=== PATIENT | female | born 1935 | race Caucasian/White ===

== ENCOUNTER 2019-10-17 16:44 | Inpatient (IN) | payer OTHER ==
[~2019-10-17] VITALS: Ht 154.9 cm; Wt 75.3 kg
[2019-10-17 16:44] VITALS: BP 90/56
--- NOTE | 2019-10-17 16:44 | NUR ---
Patient BIBA ALS, transferred to bed 1. RN evaluating patient at bedside.
--- NOTE | 2019-10-17 16:44 | NUR ---
83 Y/O F BIBA FROM DIALYSIS CENTER. PER EMS PT INTO 30 MINUTES OF DIALYSIS WHEN CALLED IN DUE TO A-FIB RVR AND HYPOTENSION. PER EMS PATIENT IN RESPIRATORY DISTRESS AND ON NRB 15LPM. PT PRESENTS WITH PIC LINE ON RUE; DIALYSIS CATHETER ON RIGHT UPPER CHEST. PT ALTERED, LABORED BREATHING, BKA RLE. SIDE RAIL X2. PER EMS TAKING FULL COVID19 PRECAUTIONS DUE TO PRESENTING S/S. PT TAKEN TO ROOM 1 AT [facility] LINE ED FOLLOWING COVID19 [facility] PROTOCOL. HX,RX --- SEE CHART
--- NOTE | 2019-10-17 16:50 | NUR ---
Dr. Ray is evaluating the patient at bedside.
--- NOTE | 2019-10-17 16:50 | NUR ---
CALLED CP COMMUNICABLE DIEASE SECTION (CDS) PT DID NOT MEET CRITERIA FOR TESTING COVID-19
[2019-10-17] MEDS ORDERED: DILTIAZEM 25 MG/5 ML VIAL IVP ONE ×2 (16:53→17:45)
[2019-10-17] MEDS ORDERED: ALBUTEROL SULFATE/IPRATROPIU 3 ML SOL IH ONE ×2 (16:54→17:45)
[2019-10-17] MEDS ORDERED: AMIODARONE 150 MG/3 ML VIAL IV ONE ×2 (17:01→18:49)
[2019-10-17] MEDS ORDERED: ALBUTEROL 0.083% 2.5 MG/3 ML NEBU INH ONE ×2 (17:06→17:45)
[2019-10-17] MEDS ORDERED: LORazepam 2 MG/ML VIAL ONE (17:25)
[2019-10-17] MEDS ORDERED: AMIODARONE 150 MG in DEXTROSE 5% 100 ML IV ONE (17:45)
[2019-10-17] MEDS ORDERED: VANCOMYCIN 1,000 MG in DEXTROSE 5% 250 ML IV ONE (17:50)
[2019-10-17] MEDS ORDERED: NACL 0.9% 1,000 ML IV ONE ×2 (17:50→18:45)
[2019-10-17] MEDS ORDERED: PIPERACILLIN/TAZOBACTAM 3.375 GM in DEXTROSE 5% 50 ML IV ONE (17:50)
[2019-10-17] MEDS ORDERED: INTUBATION KIT MC ONE (18:16)
[2019-10-17] MEDS ORDERED: SUCCINYLCHOLINE CHLORIDE 200 MG/10 ML VIAL IVP ONE (18:20)
[2019-10-17] MEDS ORDERED: ETOMIDATE 20 MG/10 ML VIAL IVP ONE (18:20)
[2019-10-17 18:26] LABS: BASOPHILS # (AUTO) 0.1 K/uL (0.00-0.22); BASOPHILS % (AUTO) 0.9 % (0.0-2.0); EOSINOPHILS # (AUTO) 0.1 K/uL (0-0.4); EOSINOPHILS % (AUTO) 0.8 % (0.0-4.0); HEMATOCRIT 30.5 % (36-48); HEMOGLOBIN 9.9 g/dL (12.0-16.0); LYMPHOCYTES # (AUTO) 1.1 K/uL (2.5-16.5); LYMPHOCYTES % (AUTO) 12.4 % (20.5-51.1); MEAN CORPUSCULAR HEMOGLOBIN 33 pg (27-31); MEAN CORPUSCULAR HGB CONC 33 g/dL (33-37); MEAN CORPUSCULAR VOLUME 100.2 fL (80-94); MONOCYTES # (AUTO) 0.4 K/uL (0.8-1.0); MONOCYTES % (AUTO) 4.5 % (1.7-9.3); NEUTROPHILS # (AUTO) 7.4 K/uL (1.8-7.7); NEUTROPHILS % (AUTO) 81.4 % (42.2-75.2); PLATELET COUNT (AUTO) 172 K/uL (140-450); RED BLOOD CELL COUNT(AUTO) 3.04 MIL/uL (4.20-5.40); RED CELL DISTRIBUTION WIDTH 18.5 % (11.6-13.7); WHITE BLOOD COUNT (AUTO) 9.1 K/uL (4.8-10.8)
--- NOTE | 2019-10-17 18:27 | NUR ---
2MG ATIVAN PULLED FROM OMNICELL AND 1MG GIVEN TO PT PER DR MEDRANO VERBAL ORDER
--- NOTE | 2019-10-17 18:27 | NUR ---
UNABLE TO DOCUMENT ON EMAR. MEDICATION NOT APPEARING.
[2019-10-17 18:28] LABS: ANION GAP 17.9 (8-16); CARBON DIOXIDE 28.2 mmol/L (21-32); CHLORIDE 102 mmol/L (98-107); GLUCOSE 142 mg/dL (74-106); POTASSIUM 3.1 mmol/L (3.5-5.1); SODIUM SERUM 145 mmol/L (136-145); UREA NITROGEN, BLOOD 69 mg/dL (7-18)
[2019-10-17 18:29] LABS: ALBUMIN 2.2 g/dL (3.4-5.0); ASPARTATE AMINOTRANSFERASE 37 U/L (15-37); CREATININE 3.4 mg/dL (0.6-1.3); TOTAL BILIRUBIN 1.6 mg/dL (0.0-1.0)
--- NOTE | 2019-10-17 18:29 | NUR ---
Dr. Ray, RN, and RTs at pt bedside for pt intubation
[2019-10-17] MEDS ORDERED: ACETAMINOPHEN 650 MG SUPP RC ONE (18:45)
[2019-10-17] MEDS ORDERED: KCL 20 MEQ/WATER INJ PREMIX 100 ML IV ONE (18:50)
[2019-10-17] MEDS ORDERED: VANCOMYCIN 1,000 MG VIAL ONE (18:52)
[2019-10-17] MEDS ORDERED: PIPERACILLIN/TAZOBACTAM 3.375 GM VIAL IV ONE (18:53)
[2019-10-17] MEDS ORDERED: ACETAMINOPHEN 325 MG TAB PO PRN (19:00)
[2019-10-17] MEDS ORDERED: VASOPRESSIN 20 UNITS in NACL 0.9% 250 ML IV SCH (19:00)
[2019-10-17] MEDS ORDERED: VANCOMYCIN PER PHARMACY MC PRN (19:00)
[2019-10-17] MEDS ORDERED: ONDANSETRON 4 MG/2 ML VIAL IVP PRN (19:00)
--- NOTE | 2019-10-17 19:30 | NUR ---
ALL CARE PROVIDED TO PATIENT, PER ERMD TO CONTINUE WITH COVID19 PRECAUTIONS. RN AT BEDSIDE WITH FULL PPE AT ALL TIMES.
[2019-10-17] MEDS ORDERED: NOREPINEPHRINE 16 MG in DEXTROSE 5% 234 ML IV PRN (19:35)
[2019-10-17 20:02] LABS: MAGNESIUM 1.8 mg/dL (1.8-2.4); PHOSPHORUS 2.5 mg/dL (2.5-4.9); THYROID STIMULATING HORMONE 4.36 uIU/mL (0.34-3.74)
[2019-10-17 20:15] VITALS: BP 136/55
--- NOTE | 2019-10-17 20:15 | NUR ---
Patient will be admitted to care of [facility]. Admited to ICU. Will go to room 6. Belongings list completed. Report to ONEAL CHAVARRIA. COVID19 PRECAUTIONS AT ALL TIMES.
--- NOTE | 2019-10-17 20:15 | NUR ---
RECEIVED REPORT FROM ER NURSE. PT. AFEBRILE. PT INTUBATED 7.0 @ 21 AC16/450/100%/+5. EVEN UNLABORED BREATHING. ON DROPLET PRECAUTION FOR INFLUENZA. NGT IN PLACE. PT ON HD. ACCESS RUC. ST ON MONITOR. IV SITE SREEDHAR PICC. DRESSING DRY, INTACT. R BKA NOTED. L TOE AMP NOTED. BED IN LOWEST POSITION. CALL LIGHT WITHIN REACH. WILL CONTINUE TO MONITOR.
[2019-10-17] MEDS ORDERED: ALBUTEROL SULFATE/IPRATROPIU 3 ML SOL IH PRN (20:50)
[2019-10-17] MEDS ORDERED: LORazepam 2 MG/ML VIAL IM/IVP ONE ×2 (21:10→22:00)
[2019-10-17 21:29] VITALS: BP 103/52
[2019-10-17] MEDS ORDERED: OSELTAMIVIR PHOSPHATE 30 MG CAP PO ONE (21:35)
[2019-10-17] MEDS ORDERED: DEXTROSE 50% 50 ML SYR IVP PRN (21:35)
--- NOTE | 2019-10-17 21:40 | NUR ---
PT INTUBATED WITH A 7.0 ETT SECURED @22 TEETH/GUMS. VENT SETTINGS AC/VC 16, VT 450, PEEP 5 AND FIO2 45% DECREASED DUE TO ABG RESULTS. VENT ALARMS ON AND FUNCTIONING. PT NOT IN ANY DISTRESS AT THIS TIME.
[2019-10-17 22:00] VITALS: BP 113/65
--- NOTE | 2019-10-17 22:00 | NUR ---
FAMILY AND DR. MCKEON AT BEDSIDE AT THIS TIME. UPDATED ON PTS CURRENT CONDITION.
[2019-10-17] MEDS: NACL 0.9% 1,000 ML IV SCH (22:33)
[2019-10-17] MEDS: DOCUSATE SODIUM 100 MG GELCAP PO SCH (22:36)
[2019-10-17] MEDS ORDERED: CRUSHER, PILL MC ONE (22:41)
[2019-10-17 23:04] VITALS: BP 113/65
[2019-10-17] MEDS ORDERED: MIDAZOLAM MDV 50 MG/10 ML VIAL IV ONE (23:20)
[2019-10-17] MEDS ORDERED: fentaNYL 0.05 MG/ML VIAL ONE (23:21)
[2019-10-18] VITALS (38 sets, daily range): BP systolic 83–124; BP diastolic 41–74
--- NOTE | 2019-10-18 | NUR ---
AFEBRILE. NO SIGNS OF ACUTE DISTRESS AT THIS TIME
[2019-10-18] MEDS ORDERED: METO25TA NG (00:13)
[2019-10-18] MEDS ORDERED: NA P135N RC (00:13)
[2019-10-18] MEDS ORDERED: BISA-213 RC ×2 (00:13→01:26)
[2019-10-18] MEDS ORDERED: ACET-2619 PO (00:13)
[2019-10-18] MEDS ORDERED: AMIO200T5 NG (00:13)
[2019-10-18] MEDS ORDERED: METF1TAB34 NG (00:13)
[2019-10-18] MEDS ORDERED: MEX2.5 NG ×2 (00:13→01:26)
[2019-10-18] MEDS ORDERED: OMEP20TC12 NG (00:13)
[2019-10-18] MEDS ORDERED: GABA100C NG (00:13)
[2019-10-18] MEDS ORDERED: ASPI-1822 NG (00:13)
[2019-10-18] MEDS ORDERED: VITA1TAB44 NG (00:13)
[2019-10-18] MEDS ORDERED: CLOP75TA55 NG (00:13)
[2019-10-18] MEDS ORDERED: CEFE1SOL IV (00:13)
[2019-10-18] MEDS ORDERED: MULT-1469 NG (00:47)
[2019-10-18] MEDS ORDERED: PRED1TAB2 NG (00:47)
[2019-10-18] MEDS ORDERED: SPIR25TA20 NG (00:47)
[2019-10-18] MEDS ORDERED: SUCR1TAB35 NG (00:47)
[2019-10-18] MEDS ORDERED: TRAM50TA1 NG (00:47)
[2019-10-18] MEDS ORDERED: VENL150C1 NGT (00:47)
[2019-10-18] MEDS ORDERED: TOPI25CA6 NG ×2 (00:47→01:26)
[2019-10-18] MEDS ORDERED: SIMV20TA1 NG (00:47)
[2019-10-18] MEDS ORDERED: TOPI25TA41 NG (00:47)
[2019-10-18] MEDS ORDERED: PILO5TAB NG (00:47)
[2019-10-18] MEDS ORDERED: traMADol 50 MG TAB NG SCH (01:30)
[2019-10-18] MEDS ORDERED: SODIUM PHOSPHATE 118 ML ENEM RC PRN (01:30)
--- NOTE | 2019-10-18 02:30 | NUR ---
PT TAKEN OFF UNIT FOR CT OF CHEST AT THIS TIME.
[2019-10-18] MEDS ORDERED: RISE35TA PO (02:32)
--- NOTE | 2019-10-18 03:00 | NUR ---
PT BITING ETT AND BECOMING RESTLESS. STARTED ON VERSED AND FENT GTT.
[2019-10-18] MEDS: fentaNYL 1 MG in NACL 0.9% 80 ML IV PRN ×2 (03:07→22:00)
[2019-10-18] MEDS: MIDAZOLAM MDV 50 MG in NACL 0.9% 40 ML IV PRN ×2 (03:10→22:00)
[2019-10-18] MEDS ORDERED: PIPERACILLIN/TAZOBACTAM 2.25 GM VIAL IV ONE (04:20)
[2019-10-18] MEDS: PIPERACILLIN/TAZOBACTAM 2.25 GM in DEXTROSE 5% 50 ML IV SCH ×3 (04:59→20:14)
--- NOTE | 2019-10-18 05:37 | NUR ---
NO SIGNS OFF ACUTE DISTRESS AT THIS TIME. RASS -3 FENTANYL AND VERSED GTT TURNED OFF AT THIS TIME.
--- NOTE | 2019-10-18 05:44 | NUR ---
PT REMAINS ON DOCUMENTED VENT SETTINGS NOT IN ANY DISTRESS. FIO2 TITRATED TO 40%. VENT ALARMS REMAIN ON AND FUNCTIONING. ETT IS SECURE WITH A PATENT AIRWAY.
[2019-10-18] MEDS ORDERED: ALBUTEROL SULFATE/IPRATROPIU 3 ML SOL IH SCH (06:00)
[2019-10-18 06:14] LABS: BASOPHILS # (AUTO) 0.1 K/uL (0.00-0.22); BASOPHILS % (AUTO) 1.1 % (0.0-2.0); EOSINOPHILS # (AUTO) 0.1 K/uL (0-0.4); EOSINOPHILS % (AUTO) 0.7 % (0.0-4.0); HEMATOCRIT 25.6 % (36-48); HEMOGLOBIN 8.4 g/dL (12.0-16.0); LYMPHOCYTES # (AUTO) 1.1 K/uL (2.5-16.5); LYMPHOCYTES % (AUTO) 13.1 % (20.5-51.1); MEAN CORPUSCULAR HEMOGLOBIN 33 pg (27-31); MEAN CORPUSCULAR HGB CONC 33 g/dL (33-37); MEAN CORPUSCULAR VOLUME 100.6 fL (80-94); MONOCYTES # (AUTO) 0.5 K/uL (0.8-1.0); MONOCYTES % (AUTO) 5.8 % (1.7-9.3); NEUTROPHILS # (AUTO) 6.9 K/uL (1.8-7.7); NEUTROPHILS % (AUTO) 79.3 % (42.2-75.2); PLATELET COUNT (AUTO) 133 K/uL (140-450); RED BLOOD CELL COUNT(AUTO) 2.55 MIL/uL (4.20-5.40); RED CELL DISTRIBUTION WIDTH 18.3 % (11.6-13.7)
[2019-10-18 06:30] LABS: MAGNESIUM 1.6 mg/dL (1.8-2.4); PHOSPHORUS 4.4 mg/dL (2.5-4.9)
[2019-10-18 06:36] LABS: ANION GAP 17.8 (8-16); CARBON DIOXIDE 22.7 mmol/L (21-32); CHLORIDE 106 mmol/L (98-107); CREATININE 3.7 mg/dL (0.6-1.3); GLUCOSE 121 mg/dL (74-106); POTASSIUM 3.5 mmol/L (3.5-5.1); SODIUM SERUM 143 mmol/L (136-145)
[2019-10-18] MEDS: BLOOD GLUCOSE MONITORING 1 DEV DEV FS SCH ×4 (06:45→20:48)
--- NOTE | 2019-10-18 06:50 | NUR ---
DR. BETHEA AT BEDSIDE AT THIS TIME. UPDATED ON PTS CURRENT CONDITION. WILL CONTINUE TO FOLLOW UP ADDITIONAL ORDERS.
[2019-10-18 06:51] LABS: UREA NITROGEN, BLOOD 76 mg/dL (7-18)
[2019-10-18 06:55] LABS: CHOL/HDL RATIO 4.7 (1-4.5)
[2019-10-18 07:01] LABS: WHITE BLOOD COUNT (AUTO) 8.7 K/uL (4.8-10.8)
--- NOTE | 2019-10-18 07:26 | NUR ---
ENDORSED CARE TO INCOMING SHIFT RN THIAGO FOR CONTINUITY OF CARE.
--- NOTE | 2019-10-18 07:30 | NUR ---
RECEIVED PT FROM PM SHIT RN. PT DOES NOT OPEN EYES, UNRESPONSIVE TO VERBAL STIMULI, WITHDRAW TO PAIN, BEDSIDE MONITOR SHOWS HR 120S. SBP 90S. PT ETT TO VENT WITH SETTING FIO2=40%, TA=855, AC=16 PEEP =5. NO S/S OF RESPIRATORY DISTRESS NOTED. PT HAS NG TUBE TO RIGHT NARES. PT ALSO HAS PICC LINE TO LEFT UPPER ARM RUNNING 0.9 NS AT 25 CC/HR. IV TO LEFT THUMB # 20, SALINE LOCKED. PT ALSO HAS HD PORT TO RIGHT UPPER CHEST. RIGHT BKA NOTED. LEFT FOOT ON HEEL PROTECTION. WILL CONTINUE TO MONITOR PT.
[2019-10-18] MEDS: ALBUTEROL SULFATE/IPRATROPIU 3 ML SOL IH SCH ×2 (07:52→19:42)
--- NOTE | 2019-10-18 07:52 | NUR ---
RECEIVED ON A LelaSCAPE R860 VENTILATOR PLUGGED INTO RED OUTLET TOLERATING WELL WITHOUT ADVERSE REACTIONS NOTED TO AN ENDOTRACHEAL TUBE #7.0 SECURE AT 22cm TEETH/GUM LINE WITH AN ANCHOR FAST CUFF PRESSURE CHECKED NOTED AMBU BAG NOTED AT BEDSIDE EQUAL CHEST RISE BREATH SOUNDS CLEAR BILATERAL GOOD AERATION THROUGHOUT BILATERAL LUNG GALAN AIRWAY PATENT
--- NOTE | 2019-10-18 08:24 | NUR ---
PATIENT HAS BEEN SCREENED AND CATEGORIZED HIGH NUTRITION RISK. PATIENT WILL BE SEEN WITHIN 1-2 DAYS OF ADMISSION. 10/18/19-10/19/[address]
[2019-10-18] MEDS ORDERED: ASPIRIN 81 MG TAB.CHEW NG SCH (09:00)
[2019-10-18] MEDS ORDERED: VIT-B COMP/VIT-C/FOLIC ACID 1 TAB NG SCH (09:00)
[2019-10-18] MEDS ORDERED: predniSONE 1 MG TAB NG SCH (09:00)
[2019-10-18] MEDS: PANTOPRAZOLE 40 MG INJ VIAL IVP SCH (09:12)
[2019-10-18] MEDS: DOCUSATE SODIUM 100 MG GELCAP PO SCH ×2 (09:12→20:43)
[2019-10-18] MEDS: VIT-B COMP/VIT-C/FOLIC ACID 1 TAB NG SCH (09:13)
[2019-10-18] MEDS: VENLAFAXINE XR 75 MG CAPER PO SCH (09:13)
[2019-10-18] MEDS: BISACODYL 10 MG SUPP RC SCH (09:13)
[2019-10-18] MEDS: CLOPIDOGREL 75 MG TAB NG SCH (09:13)
[2019-10-18] MEDS: TOPIRAMATE 25 MG TAB NG SCH (09:14)
[2019-10-18] MEDS: AMIODARONE 200 MG TAB NG SCH ×2 (09:14→20:14)
[2019-10-18] MEDS: SUCRALFATE 1 GM TAB NG SCH ×4 (09:14→20:13)
[2019-10-18] MEDS ORDERED: predniSONE 5 MG TAB PO SCH (09:15)
[2019-10-18] MEDS: SPIRONOLACTONE 25 MG TAB NG SCH (09:27)
[2019-10-18] MEDS: GABAPENTIN 100 MG CAP NG SCH ×4 (09:27→20:13)
--- NOTE | 2019-10-18 10:13 | NUR ---
CALLED PT'Rajinder GALVAN, NO ANSWER. VOICE MESSAGE LEFT.
--- NOTE | 2019-10-18 10:27 | NUR ---
NO EVIDENCE OF RESPIRATORY DISTRESS NOTED GOOD CHEST RISE ENDOTRACHEAL SUCTION FOR LARGE THICK YELLOW SECRETINS AIRWAY PATENT SATURATION 99% ON FIO2 OF 40% TITRATED FIO2 TO 35% SUPERVISOR ROVING DEPARTMENT TO NOTIFY DAY/RN
--- NOTE | 2019-10-18 11:17 | NUR ---
DR. Kevin UGARTE AT BEDSIDE MD INCREASED RATE TO 20 BPM FOR MECHANICAL SUPPORT ABG AFTER 30 MIN PLEASE CALL MD WITH RESULTS
--- NOTE | 2019-10-18 12:06 | NUR ---
FISCAL ANALYST DISCHARGE PLAN ASSESSMENT [facility] Patient: Mora Benjamin : 1935 Age/Sex: 83/F Unit#: [id number] Room/Bed: [facility]/A User: Megha Francois CM Date: 10/18/19 11:45 Type: CM: Discharge Planning High Risk DC Screen Yes Name: Kim Benjamin Pre-Admission Living Arrangements: SNF Prior ADL Needs Assistance Current Home Health Name/Tel: N/A Current Name/Tel: walker, prostetic leg Current Hospice Name/Tel: N/A Current Dialysis Name/Tel: [facility] [phone] Healthcare Decision Maker: Next of Kin Advance Directive No Physician Orders for Life Sustaining Treatment Form No Patient/Family Have Educational Needs No Tentative Discharge Plan/Destination: SNF/ECF Will require assistance post discharge: Yes - Rehab Referred to Medical Record Specialist: No Tentative Discharge Plan Summary: 83 y/o female pt admitted for respiratory distress. Pt was intubated in the ED. Pt with hx of high BP, DM, ESRD on hemodialysis. Sw spoke to pt's granddaughter, Delfina Hernandez who reported the following: pt was admitted to [facility] on September 23 due to casrdiopulmonary arrest. Pt had kidney failure and was started on dialysis at [place]. Pt was DC on October 12 to [facility] for rehab. Pt was scheduled to received outpatient dialysis at [facility] on Wednesday, , Wednesday at 8am. October 16 was the pt's first outpatient HD treatment at [facility] when she developed SOB. Prior to the patient's arrest, pt lived with family in [place]. Pt has a walker and required assistance with ADLs. Pt doesn't have an advance directive, DPOA or living will. Family appointed Kim Benjamin, daughter, as the main decision maker for the pt since she's been caring for pt for 30 years. Family doesn't want the pt to return to [facility] upon DC. SW/TEMI will continue following up as needed. Signature: Megha Francois LCSW Date: Oct 18, 2019
--- NOTE | 2019-10-18 12:21 | NUR ---
10/18/19 RD INITIAL ASSESSMENT COMPLETED PLEASE REFER TO NUTRITION ASSESSMENT UNDER CARE ACTIVITY FOR ESTIMATED NUTRITIONAL NEEDS. 1. RECOMMEND DECREASING TUBE FEEDING RATE OF NEPRO 1.8 TO 40 ML/HR WITH PROSOURCE ONCE DAILY -THIS WILL PROVIDE 1788 KCAL AND 92 GM OF PROTEIN WHICH MEETS 100% OF ESTIMATED NEEDS 2. CONTINUE FREE WATER FLUSH OF [address] TO FOLLOW-UP 2-3 DAYS, HIGH RISK CHICHI RUVALCABA RD
--- NOTE | 2019-10-18 12:36 | NUR ---
PT. ADMITTED WITH LOW AARON SCALE AT RISK,CONTINUE TO FOLLOW PRESSURE ULCER PREVENTION INTERVENTIONS. -TURN AND REPOSITION on PATIENT Q 2H -ASSESS AND MONITOR SKIN CONDITION DURING POSITION CHANGE -OFFLOAD BILATERAL HEELS BY PLACING PILLOWS UNDER CALVES AT ALL TIMES, UNLESS OTHERWISE CONTRAINDICATED -PRESSURE REDISTRIBUTION BY PLACING PILLOWS AND OFFLOADING SACRALCOCCYX -KEEP SKIN CLEAN AND DRY AT ALL TIMES.
--- NOTE | 2019-10-18 13:00 | NUR ---
came in to check pt, updated pt's condition. per dr. gomez ,increase IVF 0.9 NS FROM 25 CC/HR TO 100 CC/HR. CARRIED OUT.
[2019-10-18] MEDS: LORazepam 2 MG/ML VIAL IVP PRN (13:43)
[2019-10-18] MEDS: NACL 0.9% 1,000 ML IV SCH (13:50)
--- NOTE | 2019-10-18 14:00 | NUR ---
PT HR 130S, BP 86/47 ( MAP 60). NOTIFIED DR. MERCADO, DR. MERCADO ORDERED NS 250 BOLUS, CARRIED OUT. NO LEVOPHED DRIP DUE TO PT'S FAMILY DOES NOT WANT VASO PRESSOR. PT MODIFIED CODE. Addendum: 10/18/19 at 1949 by Sherita Chen RN DR. MERCADO MADE AWARE OF PT HR. DR. MERCADO STATED ELEVATOR PILOT KNEW PT'S HR, ONCE IT IS NOT MORE THAN 140-140S CONSISTENTLY, IT IS FINE.
[2019-10-18] MEDS ORDERED: NACL 0.9% 250 ML IV SCH (14:15)
--- NOTE | 2019-10-18 14:41 | NUR ---
REVIEWED ABG SAMPLE REPORT WITH DR. BOB UGARTE NO NEW ORDERS
[2019-10-18] MEDS ORDERED: OSELTAMIVIR PHOSPHATE 30 MG CAP PO ONE (14:50)
[2019-10-18] MEDS ORDERED: HEPARIN PER PHARMACY MC PRN (14:50)
--- NOTE | 2019-10-18 15:25 | NUR ---
ACCOMPANIED PT TO CT WITH RT, PIERCING MACHINE OPERATOR AND RN AT 1458. PT TOLERATED WELL.
--- NOTE | 2019-10-18 16:40 | NUR ---
RESTING COMFORTABLY NO DISTRESS NOTED EQUAL CHEST RISE GOOD AERATION THROUGHOUT BILATERAL LUNG GALAN AIRWAY PATENT
[2019-10-18 16:59] LABS: PROTHROMBIN TIME 12.6 secs (10.8-13.4)
--- NOTE | 2019-10-18 18:00 | NUR ---
STARTED TUBE FEEDING, PLACEMENT CONFIRMED WITH ANOTHER RN. Addendum: 10/18/19 at 1941 by Sherita Chen RN ORDERED NO TUBE FEEDING UNTIL CT DONE.
--- NOTE | 2019-10-18 19:10 | NUR ---
ENDORSED PT TO PM SHIFT RN.
--- NOTE | 2019-10-18 19:30 | NUR ---
RECEIVED BEDSIDE SHIFT REPORT FROM DAY SHIFT NURSE. PT ON DROPLET PRECAUTIONS DUE TO INFLUENZA B. PT DOES NOT OPEN EYES SPONTANEOUSLY. UNRESPONSIVE TO VERBAL STIMULI. WITHDRAWS FROM PAIN. EYES PERRL. 4MM. PT HAS ETT 7.0 SECURED 22 AT TEETH AND IS CONNECT TO VENT. ACVC FIO2 30% VT 450 RATE 20 PEEP 5. PT HAS NG TUBE THAT IS CURRENTLY RUNNING NEPRO FEEDING AT 30 ML/HR W/ FWF 150 Q6HR. RESIDUALS AT 30 ML. LUNG SOUNDS CLEAR THROUGHOUT ALL LOBES W/ EQUAL RISE AND FALL OF CHEST. HR AT 123. A-FIB ON MONITOR. PT HAS RIGHT CHEST HEMODIALYSIS ACCESS CATHETER. DRESSING IS DRY AND CLEAN. PT HAS MITTENS ON BOTH HANDS. PT HAS L THUMB PIV 20 G AND SREEDHAR PICC. BOTH LINES ASYMPTOMATIC, PATENT, AND INTACT. NS RUNNING AT 100 ML/HR. 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 SKIN IS INTACT AND COOL. TEMP IS 96.9 TEMPORAL. WILL PROVIDE WARMING MEASURES. BED LOCKED, LOW POSITION. SAFETY MEASURES IN CHECK. CALL LIGHT WITHIN REACH. WILL CONTINUE TO MONITOR.
--- NOTE | 2019-10-18 19:43 | NUR ---
RECEIVED REPORT FROM AM SHIFT. PT IS INTUBATED WITH ETT SIZE 7.0 AT 22CM @ TEETH LEVEL AND SECURED WITH ANCHOR-FAST. PT ON VENT SETTINGS ORDERED, VENT PLUGGED IN RED OUTLET, ALARMS SET AND AUDIBLE, BVM AT BEDSIDE, HOB > 30 DEGREES. PT IS IN NO APPARENT RESPIRATORY DISTRESS AT THIS TIME: RR 22, SPO2 100% ON FiO2 OF 40%: Fi02 TITRATED TO 35% WITH SPO2 98%, AND A COARSE BILATERAL BREATH SOUNDS. SX SMALL AMOUNT OF YELLOW THICK SECRETIONS FROM ETT. HHN TX GIVEN ORDERED WITH NO ADVERSE REACTION. FAMILY MEMBER AT BEDSIDE. WILL CONTINUE TO MONITOR PT.
[2019-10-18] MEDS: SIMVASTATIN 20 MG TAB NG SCH (20:14)
[2019-10-18] MEDS: APIXABAN 2.5 MG TAB PO SCH (20:16)
[2019-10-18] MEDS: TOPIRAMATE 25 MG TAB PO SCH (20:20)
[2019-10-18] MEDS ORDERED: OSELTAMIVIR PHOSPHATE 30 MG CAP PO SCH (20:50)
[2019-10-18] MEDS ORDERED: MIDAZOLAM MDV 50 MG in NACL 0.9% 40 ML IV PRN (21:50)
[2019-10-18] MEDS ORDERED: fentaNYL 1 MG in NACL 0.9% 80 ML IV PRN (21:50)
--- NOTE | 2019-10-18 22:00 | NUR ---
STARTED FENTANYL AND VERSED DRIPS 0.5 MCG/KG/HR AND 1 MG/HR RESPECTIVELY FOR RASS -3. PT WAS GETTING AGITATED, REACHING FOR TUBES. PT WAS DISPLAYING FACIAL GRIMACING. Addendum: 10/19/19 at 0808 by Mary Chowdhury RN DRY WEIGHT 69KG
--- NOTE | 2019-10-18 22:45 | NUR ---
HUGHES CATHETER INSERTED AND SECURED AT 2245. 200 ML CLEAR YELLOW URINE W/ RESIDUALS OUTPUT. Addendum: 10/19/19 at 0806 by Robert Winn RN RN MEANT TO MENTION HAZY CLOUDY URINE W/ SEDIMENTS OUTPUT.
[2019-10-18] MEDS ORDERED: VANCOMYCIN PER PHARMACY MC PRN (22:50)
--- NOTE | 2019-10-18 23:15 | NUR ---
INCREASED NEPRO FEEDING TO 40 ML/HR Addendum: 10/19/19 at 0804 by Mary Chowdhury RN RESIDUALS 10ML
--- NOTE | 2019-10-18 23:22 | NUR ---
VERSED STOPPED DUE TO LOW BLOOD PRESSURE. Addendum: 10/19/19 at 0803 by Robert Winn RN RN FENTANYL STILL RUNNING AT 0.5 MCG/KG/HR. WILL CONTINUE TO MONITOR.
[2019-10-19] VITALS (106 sets, daily range): BP systolic 81–124; BP diastolic 47–93
[2019-10-19] MEDS: NACL 0.9% 1,000 ML IV SCH ×2 (00:14→10:02)
--- NOTE | 2019-10-19 01:00 | NUR ---
DID ROUNDING ON PT. PT APPEARS TO BE RESTING. PT WITHDRAWS FROM PAIN. EYES PERRL. VITAL SIGNS STABLE. A-FIB ON MONITOR. BED IN LOW POSITION IN SEMI FOWLERS POSITION. CALL LIGHT WITHIN REACH. WILL CONTINUE TO MONITOR.
--- NOTE | 2019-10-19 03:00 | NUR ---
CHECKED ON PT. PT APPEARS TO BE RESTING. PT AROUSABLE TO TACTILE STIMULI. EYES PERRL. 4MM. RELEASED PT FROM MITTENS TO CHECK SKIN. SKIN UNDERNEATH MITTENS IS INTACT, NO SIGNS OF INJURY. CAP REFILL <3. BED IS LOCKED IN LOW POSITION. SAFETY MEASURES IN PLACE. CALL LIGHT WITHIN REACH. WILL CONTINUE TO MONITOR.
[2019-10-19] MEDS ORDERED: VANCOMYCIN HCL 1,000 MG in NACL 0.9% 250 ML IV SCH (03:55)
[2019-10-19] MEDS: PIPERACILLIN/TAZOBACTAM 2.25 GM in DEXTROSE 5% 50 ML IV SCH ×3 (04:41→21:05)
--- NOTE | 2019-10-19 05:30 | NUR ---
PROVIDED SKIN CARE AND VAP ORAL CARE FOR PT. PT STILL ON FENTANYL DRIP VIA PICC SREEDHAR. PT HAS PIV LEFT THUMB 20G ASYMPTOMATIC, PATENT AND INTACT. DIALYSIS ACCESS OF THE RIGHT UPPER CHEST; DRESSING CLEAN AND DRY. PT IS AFIB ON MONITOR. RESIDUAL FROM NG TUBE IS 30 ML. UO 250 ML. SAFETY MEASURES ENSURED. BED IN LOW SETTING AND LOCKED. WILL CONTINUE TO MONITOR.
[2019-10-19 06:24] LABS: MAGNESIUM 1.7 mg/dL (1.8-2.4); PHOSPHORUS 4.5 mg/dL (2.5-4.9)
[2019-10-19 06:26] LABS: ANION GAP 19.4 (8-16); CARBON DIOXIDE 20.4 mmol/L (21-32); CHLORIDE 105 mmol/L (98-107); GLUCOSE 132 mg/dL (74-106); POTASSIUM 3.8 mmol/L (3.5-5.1); SODIUM SERUM 141 mmol/L (136-145)
[2019-10-19 06:32] LABS: BASOPHILS # (AUTO) 0.1 K/uL (0.00-0.22); BASOPHILS % (AUTO) 1.2 % (0.0-2.0); EOSINOPHILS # (AUTO) 0.1 K/uL (0-0.4); EOSINOPHILS % (AUTO) 0.8 % (0.0-4.0); HEMATOCRIT 23.6 % (36-48); HEMOGLOBIN 7.8 g/dL (12.0-16.0); LYMPHOCYTES # (AUTO) 1.1 K/uL (2.5-16.5); LYMPHOCYTES % (AUTO) 12.8 % (20.5-51.1); MEAN CORPUSCULAR HEMOGLOBIN 33 pg (27-31); MEAN CORPUSCULAR HGB CONC 33 g/dL (33-37); MEAN CORPUSCULAR VOLUME 101.8 fL (80-94); MONOCYTES # (AUTO) 0.6 K/uL (0.8-1.0); MONOCYTES % (AUTO) 6.8 % (1.7-9.3); NEUTROPHILS # (AUTO) 6.7 K/uL (1.8-7.7); NEUTROPHILS % (AUTO) 78.4 % (42.2-75.2); PLATELET COUNT (AUTO) 159 K/uL (140-450); RED BLOOD CELL COUNT(AUTO) 2.32 MIL/uL (4.20-5.40); RED CELL DISTRIBUTION WIDTH 18.8 % (11.6-13.7); WHITE BLOOD COUNT (AUTO) 8.6 K/uL (4.8-10.8)
[2019-10-19 06:46] LABS: CREATININE 4.2 mg/dL (0.6-1.3); UREA NITROGEN, BLOOD 88 mg/dL (7-18)
--- NOTE | 2019-10-19 06:54 | NUR ---
RECEIVED CRITICAL LAB REPORT BUN 88 CREATININE 4.15. LAB TRENDING UPWARD. CALL DR. MEEK TO REPORT AT 2717
--- NOTE | 2019-10-19 07:30 | NUR ---
RECEIVED REPORT FROM SPORTS TEACHER DEON MADDOX, PT RASS -3 WITH FENTANYL RUNNING 0.5 MCG/KG/HR, 0.9 NS 100ML/HR, LEFT UPPER ARM PICC, LEFT HAND 20 G IV, PT PERRLA, SKIN IS INTACT, PT HAS RIGHT BELOW THE KNEE AMPUTATION, LEFT FOOT 1ST DIGIT AMPUTATION, PT IS WARM AND DRY, WITH PALE LOOKING SKIN, CAP REFILL <3 SECONDS. PT IS ETT TO VENT FIO2 30 VT 450 RR 20 PEEP 5. PT HAS NG TUBE RUNNING NEPRO 40 ML/HR WITH WATER FLUSH 150 ML/Q6HR. PT IS AFIB WITH ELEVATED HR 130, WILL CONTINUE TO MONITOR PT. Addendum: 10/19/19 at 1800 by Evaristo Underwood RN PT WEIGHT 69.9 KG, HEMODIALYSES ACCESS RIGHT UPPER CHEST BRUIT HEARD
[2019-10-19] MEDS: ALBUTEROL SULFATE/IPRATROPIU 3 ML SOL IH SCH ×3 (08:10→19:13)
--- NOTE | 2019-10-19 08:10 | NUR ---
RECEIVED ON A MMISAPE R860 VENTILATOR PLUGGED INTO RED OUTLET TOLERATING WELL WITHOUT ADVERSE REACTIONS NOTED TO AN ENDOTRACHEAL TUBE #7.0 SECURED AT 22cm TEETH/GUM LINE WITH AN ANCHOR FAST CUFF PRESSURE CHECKED NOTED AMBU BAG NOTED AT BEDSIDE RESTING WELL NO APPARENT RESPIRATORY DISTRESS NOTED GOOD CHEST RISE ENDOTRACHEAL TUBE SUCTION FOR LARGE THICK PALE YELLOW SECRETIONS AIRWAY PATENT
[2019-10-19] MEDS: CLOPIDOGREL 75 MG TAB NG SCH (09:07)
[2019-10-19] MEDS: SUCRALFATE 1 GM TAB NG SCH ×4 (09:08→21:05)
[2019-10-19] MEDS: GABAPENTIN 100 MG CAP NG SCH ×4 (09:08→21:06)
[2019-10-19] MEDS: VIT-B COMP/VIT-C/FOLIC ACID 1 TAB NG SCH (09:08)
[2019-10-19] MEDS: PANTOPRAZOLE 40 MG INJ VIAL IVP SCH (09:08)
[2019-10-19] MEDS: BISACODYL 10 MG SUPP RC SCH (09:09)
[2019-10-19] MEDS: AMIODARONE 200 MG TAB NG SCH ×2 (09:09→21:05)
[2019-10-19] MEDS: TOPIRAMATE 25 MG TAB NG SCH (09:25)
[2019-10-19] MEDS: predniSONE 5 MG TAB PO SCH (09:26)
[2019-10-19] MEDS: VENLAFAXINE XR 75 MG CAPER PO SCH (09:26)
[2019-10-19] MEDS: APIXABAN 2.5 MG TAB PO SCH ×2 (09:34→21:18)
[2019-10-19] MEDS: DOCUSATE SODIUM 100 MG GELCAP PO SCH ×2 (09:34→21:06)
[2019-10-19] MEDS: SPIRONOLACTONE 25 MG TAB NG SCH (09:59)
--- NOTE | 2019-10-19 10:00 | NUR ---
REPOSITION ORAL CARE GIVEN. DULCOLAX SUPPOSSIORY .GIVEN.
--- NOTE | 2019-10-19 10:31 | NUR ---
STABLE NO DISTRESS NOTED GOOD CHEST RISE ENDOTRACHEAL SUCTION FOR MODERATE THICK PALE YELLOW SECRETIONS AIRWAY PATENT
[2019-10-19] MEDS: BLOOD GLUCOSE MONITORING 1 DEV DEV FS SCH ×3 (11:30→21:00)
[2019-10-19] MEDS ORDERED: MAG SULF 2000 MG/WATER PREMIX 50 ML IV SCH (12:00)
--- NOTE | 2019-10-19 12:00 | NUR ---
DR. UGARTE CAME AND PRESCRIBED PROAMATINE, DOES NOT RECOMMEND DIALYSIS AT THIS TIME Addendum: 10/19/19 at 1807 by Evaristo Underwood RN DR. LAMA VISITED NOT DR. PITTS AND PRESCRIBED AT 1300
--- NOTE | 2019-10-19 12:00 | NUR ---
SEEN BY DR. CANCINO AT BEDSIDE.
[2019-10-19] MEDS ORDERED: VANCOMYCIN 1,000 MG in DEXTROSE 5% 250 ML IV SCH (13:00)
--- NOTE | 2019-10-19 13:20 | NUR ---
SEEN BY DR. LAMA AT BED SIDE,NEW ORDER RECEIVED,
[2019-10-19] MEDS: INSULIN LISPRO SLIDING SCALE 100 UNITS/ML VIAL SUBQ PRN ×3 (13:22→21:17)
[2019-10-19] MEDS: MIDODRINE 5 MG TAB PO SCH ×2 (14:03→19:49)
--- NOTE | 2019-10-19 14:07 | NUR ---
DISCHARGE PLANNING: THIS IS AN 83 Y/O FEMALE PATIENT FROM HOME, WHO CAME IN DUE TO RESPIRATORY DISEASE. PAST MEDICAL HISTORY INCLUDE HTN, DIABETES, ESRD ON HD, DIABETIC NEUROPATHY, PVD, CHF, ASTHMA AND SEIZURE DISORDER. INITIAL DIAGNOSIS OF ASPIRATION PNEUMONIA. CURRENT LABS INCLUDE WBC 8.6, H/H 7.8/23.6, NA/K 141/3.8, BUN/CREA 88/4.2 AND TROP 0.84. ON VANCOMYCIN, ELIQUIS AND PLAVIX. ID. CARDIO, NEPHRO AND CRITICAL CARE CONSULTS IN PLACE. DC PLAN PENDING ON THE PATIENT'S RESPONSE TO TREATMENT.
--- NOTE | 2019-10-19 14:49 | NUR ---
NO APPARENT PULMONARY DISTRESS NOTED EQUAL CHEST RISE GOOD AERATION THROUGHOUT BILATERAL GALAN AIRWAY PATENT SATURATION 97% ON FIO2 OF 30% POST HHN THERAPY TITRATED FIO2 TO 28% TRUST AND ESTATES ATTORNEY TO MELISSA RN
[2019-10-19] MEDS: fentaNYL 1 MG in NACL 0.9% 80 ML IV PRN (18:17)
--- NOTE | 2019-10-19 18:17 | NUR ---
HANG NEW BAG FENTANYL, WASTED 5 ML FROM PREVIOUS BAG
--- NOTE | 2019-10-19 19:29 | NUR ---
RECEIVED REPORT FROM AM SHIFT. PT IS INTUBATED WITH ETT SIZE 7.0 AT 22CM @ TEETH LEVEL AND SECURED WITH ANCHOR-FAST. PT ON VENT SETTINGS ORDERED, VENT PLUGGED IN RED OUTLET, ALARMS SET AND AUDIBLE, BVM AT BEDSIDE, HOB > 30 DEGREES. PT IS IN NO APPARENT RESPIRATORY DISTRESS AT THIS TIME: RR 20, SPO2 98% ON FiO2 OF 28%: Fi02 TITRATED TO 25% WITH SPO2 98%, AND A COARSE BILATERAL BREATH SOUNDS. SX SMALL AMOUNT OF YELLOW THICK SECRETIONS FROM ETT. HHN TX GIVEN ORDERED WITH NO ADVERSE REACTION. WILL CONTINUE TO MONITOR PT.
--- NOTE | 2019-10-19 19:30 | NUR ---
RECEIVED PT FROM AM SHIFT RN. PT SEDATED. RASS -3. SINUS TACHYCARDIA ON MONITOR. ETT TO VENT FIO2 25%, TV 450, RR 20, PEEP 5. R NARE NGT TO FEEDING. 0 RESIDUALS. HEMODIALYSIS ACCESS ON R UPPER CHEST. SREEDHAR PICC, INFUSING NS AT 100ML/HR AND FENTANYL 0.5 MCG/KG/HR. DRY WEIGHT 69.9 KG. IV SITE, L HAND 20 GAUGE, SALINE LOCKED. SKIN INTACT. SKIN WARM AND DRY. BILAT SOFT MITTENS RESTRAINTS. NO SKIN BREAK. R BKA AND LEFT FOOT 1ST DIGIT AMPUTATION. HUGHES CATHETER IN PLACE. HOB 30 DEGREES. BED LOCKED IN LOWEST POSITION. WILL CONTINUE TO MONITOR.
--- NOTE | 2019-10-19 19:30 | NUR ---
ENDORSED PT TO AIRCRAFT DETAIL DRAFTSPERSON NURSE JAYANT
[2019-10-19] MEDS: TOPIRAMATE 25 MG TAB PO SCH (21:05)
[2019-10-19] MEDS: SIMVASTATIN 20 MG TAB NG SCH (21:06)
--- NOTE | 2019-10-19 21:30 | NUR ---
BLOOD SUGAR 190, 2 UNITS OF HUMALOG GIVEN.
[2019-10-19] MEDS ORDERED: DOCUSATE 100 MG/10 ML UDC GT PRN (21:45)
--- NOTE | 2019-10-19 23:30 | NUR ---
PT RESTING IN BED, EYES CLOSED. SEDATED, RASS -3. RESPIRATIONS EVEN AND UNLABORED. CHEST RISE IS SYMMETRICAL. HOB 30 DEGREES. BED LOCKED IN LOWEST POSITION. SAFETY PRECAUTIONS IN PLACE. WILL CONTINUE TO MONITOR.
[2019-10-20] VITALS (106 sets, daily range): BP systolic 91–132; BP diastolic 48–75
--- NOTE | 2019-10-20 00:30 | NUR ---
DR MCKEON IN TO ASSESS PT.
[2019-10-20] MEDS: NACL 0.9% 1,000 ML IV SCH ×3 (02:22→16:00)
--- NOTE | 2019-10-20 04:11 | NUR ---
MARY CARE PROVIDED. SPONGE BATH GIVEN. PT REPOSITIONED. HOB 30 DEGREES. BED LOCKED IN LOWEST POSITION. WILL CONTINUE TO MONITOR.
[2019-10-20] MEDS: PIPERACILLIN/TAZOBACTAM 2.25 GM in DEXTROSE 5% 50 ML IV SCH ×3 (04:48→21:12)
--- NOTE | 2019-10-20 05:47 | NUR ---
PT IS IN NO APPARENT RESPIRATORY DISTRESS AT THIS MOMENT. SX SMALL YELLOW THICK SECRETIONS AT THIS TIME. AIRWAY IS PATENT. PLAN IS TO CONTINUE VENT SUPPORT AND ASSESS FOR CPAP TRAIL. WILL CONTINUE TO MONITOR PT.
--- NOTE | 2019-10-20 05:50 | NUR ---
PT'S NGT OUT OF PLACE. REINSERTED NGT IN L NARE. CALLED DR MCKEON TO ORDER XRAY FOR POSITIVE PLACEMENT.
--- NOTE | 2019-10-20 06:00 | NUR ---
DR CORONA IN TO ASSESS PT.
[2019-10-20 06:58] LABS: MAGNESIUM 2.4 mg/dL (1.8-2.4); PHOSPHORUS 4.4 mg/dL (2.5-4.9)
[2019-10-20] MEDS: ALBUTEROL SULFATE/IPRATROPIU 3 ML SOL IH SCH ×3 (07:02→19:00)
[2019-10-20 07:04] LABS: ANION GAP 19.9 (8-16); CARBON DIOXIDE 18.8 mmol/L (21-32); CHLORIDE 105 mmol/L (98-107); GLUCOSE 117 mg/dL (74-106); POTASSIUM 3.7 mmol/L (3.5-5.1); SODIUM SERUM 140 mmol/L (136-145)
[2019-10-20 07:15] LABS: FOLIC ACID > 20.00 ng/mL (>3.0)
--- NOTE | 2019-10-20 07:15 | NUR ---
BEDSIDE REPORT GIVEN TO MARTA CHAVARRIA FOR CONTINUITY OF CARE. PT IN STABLE IN CONDITION.
--- NOTE | 2019-10-20 07:16 | NUR ---
RECIVED PT ON VENT WITH SETTINGS CHARTED BREATH SOUNDS PRESENT BILAT DIMINISHED SXN PT WITH MIN AMT TELLOW SECS AMBU BAG AT BEDSIDE VENT PLUGGED INTO RED OUTLET ETT SECURE WILL CONTINUE TO MONITOR PT ON VENT
[2019-10-20 07:30] LABS: HEMOGLOBIN 7.5 g/dL (12.0-16.0); MEAN CORPUSCULAR HEMOGLOBIN 34 pg (27-31); MEAN CORPUSCULAR HGB CONC 34 g/dL (33-37); MEAN CORPUSCULAR VOLUME 101.4 fL (80-94); PLATELET COUNT (AUTO) 196 K/uL (140-450); WHITE BLOOD COUNT (AUTO) 8.5 K/uL (4.8-10.8)
--- NOTE | 2019-10-20 07:30 | NUR ---
RECEIVED REPORT FROM PM NURSE, PT RASS -3 EYES MARLEE, PT WILL OPEN EYES, PT A-FIB ON MONITOR S1 S2 HEART SOUNDS HEARD, LUNG SOUNDS CLEAR BILATERAL, PT ETT TO VENT FIO2 25 VT 450 RR 20 PEEP 5, PT HAS NG TUBE RIGHT NARE NO RESIDUALS, AIR HEARD UPON ASCULTATION, PT HAS 20 G IV LEFT HAND MIDLINE LEFT UPPER ARM, PT HAS HEMODIALYSIS PORT RIGHT UPPER CHEST BRUIT HEARD, LINES PATENT AND FLUSHABLE WITH 5ML NS PER LINE, PT HAS 0.9 NS RUNNING 100 ML/HR, FENTANYL 0.5 MCG/KG/HR, INFUSING PT DRY WEIGHT 69.9. , ABDOMEN SOFT NON TENDER, BOWEL SOUNDS HEARD ALL FOUR QUADRANTS, PT HAS HUGHES CATHETER IN PLACE WITH CLEAR YELLOW URINE, SKIN IS INTACT PT HAS RIGHT BKA, LEFT FOOT 1ST DIGIT AMPUTATION, PT HEAD OF BED 30 DEGREES PER PROTOCOL, IN LOWEST POSITION LOCKED WITH CALL LIGHT WITHIN REACH WILL CONTINUE TO MONITOR.
[2019-10-20] MEDS: MIDODRINE 5 MG TAB PO SCH ×3 (07:31→18:03)
[2019-10-20 07:36] LABS: UREA NITROGEN, BLOOD 99 mg/dL (7-18)
[2019-10-20 07:37] LABS: CREATININE 4.4 mg/dL (0.6-1.3); HEMATOCRIT 22.7 % (36-48)
[2019-10-20 07:44] LABS: EOSINOPHILS % (MANUAL) 1 % (0-4); LYMPHOCYTES % (MANUAL) 11 % (20-46); MONOCYTES % (MANUAL) 3 % (5-12)
[2019-10-20 07:51] LABS: FERRITIN 800 ng/mL (15 - 150); TRANSFERRIN 112 mg/dL (200 - 370)
[2019-10-20] MEDS: BLOOD GLUCOSE MONITORING 1 DEV DEV FS SCH ×4 (07:52→21:00)
--- NOTE | 2019-10-20 08:00 | NUR ---
DR. MISRTY AND RESIDENT GROUP MADE ROUNDS WILL FOLLOW UP ON ORDERS
[2019-10-20] MEDS ORDERED: PROBIOTIC SCREEN 1 EA MISC MC PRN (08:10)
[2019-10-20] MEDS: predniSONE 5 MG TAB PO SCH (08:23)
[2019-10-20] MEDS: PANTOPRAZOLE 40 MG INJ VIAL IVP SCH (08:24)
[2019-10-20] MEDS: TOPIRAMATE 25 MG TAB NG SCH (08:24)
[2019-10-20] MEDS: LACTOBACILLUS RHAMNOSUS GG 1 EACH CAP PO SCH (08:24)
[2019-10-20] MEDS: CLOPIDOGREL 75 MG TAB NG SCH (08:25)
[2019-10-20] MEDS: SUCRALFATE 1 GM TAB NG SCH ×4 (08:25→21:12)
[2019-10-20] MEDS: AMIODARONE 200 MG TAB NG SCH ×2 (08:25→21:13)
[2019-10-20] MEDS: SPIRONOLACTONE 25 MG TAB NG SCH (08:25)
[2019-10-20] MEDS: VIT-B COMP/VIT-C/FOLIC ACID 1 TAB NG SCH (08:25)
[2019-10-20] MEDS: VENLAFAXINE XR 75 MG CAPER PO SCH (08:26)
[2019-10-20] MEDS: GABAPENTIN 100 MG CAP NG SCH ×4 (08:26→21:12)
[2019-10-20] MEDS: BISACODYL 10 MG SUPP RC SCH (08:26)
[2019-10-20] MEDS ORDERED: DOCUSATE 100 MG/10 ML UDC GT PRN (08:48)
[2019-10-20] MEDS: APIXABAN 2.5 MG TAB PO SCH ×2 (08:52→21:24)
[2019-10-20] MEDS: fentaNYL 1 MG in NACL 0.9% 80 ML IV PRN ×2 (08:57→21:29)
[2019-10-20] MEDS ORDERED: METHOTREXATE 2.5 MG TAB NG SCH (09:00)
--- NOTE | 2019-10-20 09:23 | NUR ---
PT SEEN AND EXAMINED BY DR. GIBBS. NO NEW ORDER RECEIVED AT THIS TIME.
--- NOTE | 2019-10-20 09:45 | NUR ---
MEDS ADMINISTERED PT TOLERATED WELL
--- NOTE | 2019-10-20 12:44 | NUR ---
10/20/19 RD FOLLOW UP COMPLETED PLEASE REFER TO NUTRITION ASSESSMENT UNDER CARE ACTIVITY FOR ESTIMATED NUTRITIONAL NEEDS. 1. CONTINUE NEPRO 1.8 @ 40 ML/HR WITH PROSOURCE ONCE DAILY IF PATIENT HAS DIALYSIS -THIS WILL PROVIDE 1788 KCAL AND 92 GM OF PROTEIN WHICH MEETS 100% OF ESTIMATED NEEDS 2. HOLD PROSOURCE IF PATIENT DOES NOT HAVE DIALYSIS 3. CONTINUE FREE WATER FLUSH OF [address] TO FOLLOW-UP 2-3 DAYS, HIGH RISK CHICHI RUVALCABA RD
--- NOTE | 2019-10-20 12:45 | NUR ---
PT SEEN AND EXAMINED BY DR. LAMA AT BEDSIDE. ORDERS RECEIVED.
--- NOTE | 2019-10-20 13:13 | NUR ---
PER LUIS ANN (DIALYSIS), HD NURSE WILL BE HERE BETWEEN [id number] TODAY.
[2019-10-20] MEDS ORDERED: FLUCONAZOLE 100 MG/NS PREMIX 50 ML IV SCH ×2 (13:18→21:00)
[2019-10-20] MEDS ORDERED: MIDODRINE 5 MG TAB PO SCH ×2 (14:00→15:30)
--- NOTE | 2019-10-20 14:14 | NUR ---
attempted cpap trial pressure sopport 10 peep 5 pt unable to zaid at this time rn aware will continue to monitor pt
--- NOTE | 2019-10-20 15:00 | NUR ---
PT REMAINS RASS -3 SKIN, INTACT, PT DAUGHTER CAME TO VISIT AND IS SITTING WITH PATIENT. WILL CONTINUE TO MONITOR
--- NOTE | 2019-10-20 16:45 | NUR ---
DIALYSIS NURSE ARRIVED TO BEGIN PT DIALYSIS
--- NOTE | 2019-10-20 19:05 | NUR ---
BEDSIDE REPORT RECEIVED FROM AM SHIFT RN. HEMODIALYSIS AT BEDSIDE. PT CURRENTLY RECEIVING DIALYSIS. PT SEDATED, RASS -3. PT ETT TO VENT, ON AC VC MODE. FIO2 25%, TV 450, RR 20, PEEP 5. LUNG SOUNDS CLEAR. AFIB ON MONITOR. SREEDHAR MIDLINE, INFUSING FENTANYL 0.5 MCG/KG/HR AND NS AT 100ML/HR. DRY WEIGHT 69.9KG. R BKA, LFOOT 1ST DIGIT AMPUTATION. NGT IN L NARE TO FEEDING. SKIN WARM AND DRY. HUGHES CATHETER IN PLACE. HOB 30 DEGREES. BED LOCKED IN LOWEST POSITION. WILL CONTINUE TO MONITOR.
--- NOTE | 2019-10-20 19:05 | NUR ---
PT ENDORSED TO PRODUCT DEVELOPMENT ACTUARY NURSE CHRISTI, HEMODIALYSIS NURSE STILL AT BESIDE, PT STABLE
--- NOTE | 2019-10-20 19:30 | NUR ---
RECEIVED PT FROM DAY SHIFT ON DOCUMENTED SETTINGS. VENT PLUGGED INTO RED OUTLET. BMV AT HEAD OF BED. ALARMS AUDIBLE AND WORKING. ETT SECURED WITH ANKORFAST. PT REMAINS SEDATED. FAMILY AT BEDSIDE. WILL CONT TO MONITOR
--- NOTE | 2019-10-20 19:40 | NUR ---
DIALYSIS COMPLETED. 500ML REMOVED BY DIALYSIS NURSE.
--- NOTE | 2019-10-20 19:45 | NUR ---
PT HR WAS HIGH. DID NOT ADMINISTER TX
[2019-10-20] MEDS ORDERED: OSELTAMIVIR PHOSPHATE 30 MG CAP PO SCH (21:00)
[2019-10-20] MEDS: SIMVASTATIN 20 MG TAB NG SCH (21:13)
[2019-10-20] MEDS: TOPIRAMATE 25 MG TAB PO SCH (21:14)
--- NOTE | 2019-10-20 22:12 | NUR ---
PT REPOSITIONED, ORAL CARE PROVIDED. SEDATED, RASS -3. RESPIRATIONS EVEN AND UNLABORED. CHEST RISE IS SYMMETRICAL. HOB 30 DEGREES. BED LOCKED IN LOWEST POSITION. WILL CONTINUE TO MONITOR.
[2019-10-21] VITALS (51 sets, daily range): BP systolic 89–136; BP diastolic 50–78
--- NOTE | 2019-10-21 00:30 | NUR ---
PT SEDATED, RASS -3. EYES CLOSED. RESPIRATIONS EVEN AND UNLABORED. CHEST RISE IS SYMMETRICAL. HOB 30 DEGREES. BED LOCKED IN LOWEST POSITION. WILL CONTINUE TO MONITOR.
--- NOTE | 2019-10-21 01:12 | NUR ---
DR MCKEON IN TO ASSESS PT.
[2019-10-21] MEDS: NACL 0.9% 1,000 ML IV SCH (02:22)
--- NOTE | 2019-10-21 03:12 | NUR ---
PT ETT TO VENT, SEDATED, RASS -3. HAS EYES CLOSED. RESPIRATIONS EVEN AND UNLABORED. CHEST RISE IS SYMMETRICAL. HOB 30 DEGREES. BED LOCKED IN LOWEST POSITION. WILL CONTINUE MONITOR.
[2019-10-21 04:49] LABS: EOSINOPHILS # (AUTO) 0.1 K/uL (0-0.4); HEMOGLOBIN 7.6 g/dL (12.0-16.0); LYMPHOCYTES # (AUTO) 0.7 K/uL (2.5-16.5); LYMPHOCYTES % (AUTO) 9.1 % (20.5-51.1); MONOCYTES # (AUTO) 0.3 K/uL (0.8-1.0)
[2019-10-21 04:58] LABS: BASOPHILS # (AUTO) 0.1 K/uL (0.00-0.22); BASOPHILS % (AUTO) 0.7 % (0.0-2.0); EOSINOPHILS % (AUTO) 1.2 % (0.0-4.0); HEMATOCRIT 23.3 % (36-48); MEAN CORPUSCULAR HEMOGLOBIN 33 pg (27-31); MEAN CORPUSCULAR HGB CONC 33 g/dL (33-37); MEAN CORPUSCULAR VOLUME 99.4 fL (80-94); MONOCYTES % (AUTO) 4.2 % (1.7-9.3); NEUTROPHILS # (AUTO) 6.7 K/uL (1.8-7.7); NEUTROPHILS % (AUTO) 84.8 % (42.2-75.2); PLATELET COUNT (AUTO) 153 K/uL (140-450); RED BLOOD CELL COUNT(AUTO) 2.34 MIL/uL (4.20-5.40); RED CELL DISTRIBUTION WIDTH 18.7 % (11.6-13.7)
[2019-10-21] MEDS: PIPERACILLIN/TAZOBACTAM 2.25 GM in DEXTROSE 5% 50 ML IV SCH ×3 (05:00→22:07)
[2019-10-21 05:10] LABS: ANION GAP 14.2 (8-16); CARBON DIOXIDE 24.9 mmol/L (21-32); CHLORIDE 104 mmol/L (98-107); CREATININE 2.4 mg/dL (0.6-1.3); GLUCOSE 123 mg/dL (74-106); POTASSIUM 3.1 mmol/L (3.5-5.1); SODIUM SERUM 140 mmol/L (136-145); UREA NITROGEN, BLOOD 42 mg/dL (7-18)
[2019-10-21 05:15] LABS: MAGNESIUM 1.8 mg/dL (1.8-2.4); PHOSPHORUS 2.2 mg/dL (2.5-4.9)
--- NOTE | 2019-10-21 05:22 | NUR ---
PT REMAINS ON DOCUMENTED SETTING. VENT PLUGGED INTO RED OUTLET. BMV AT BEDSIDE. ALARMS SET. ETT SECURED WITH ANKORFAST. PT IS IN NO DISTRESS. WILL CONT TO MONITOR
[2019-10-21] MEDS: fentaNYL 1 MG in NACL 0.9% 80 ML IV PRN (05:39)
--- NOTE | 2019-10-21 05:40 | NUR ---
PT HAD 1 BM WITH JELLY LIKE CONSISTENCY, PALE YELLOW COLOR.
[2019-10-21 06:08] LABS: HEPATITIS A ANTIBODY IGM Negative (Negative); HEPATITIS B CORE AB TOTAL Negative (Negative); HEPATITIS B SURFACE ANTIBODY Non Reactive (.); HEPATITIS B SURFACE ANTIGEN Negative (Negative)
[2019-10-21 06:36] LABS: WHITE BLOOD COUNT (AUTO) 7.9 K/uL (4.8-10.8)
[2019-10-21] MEDS: ALBUTEROL SULFATE/IPRATROPIU 3 ML SOL IH SCH ×3 (07:00→19:36)
--- NOTE | 2019-10-21 07:00 | NUR ---
RECEIVED PT ON VENT WITH SETTINGS CHARTED BREATH SOUNDS PRESENT BILAT DIMINISHED SXN PT WITH MIN AMT OFF WHITE SECS ETT SECURE AMBUI BAG AT BEDSIDE VENT PLUGGED INTO RED OUTLET WILL CONTINUE TO MONITOR PT ON VENT
--- NOTE | 2019-10-21 07:30 | NUR ---
Received report from mini shifter nurse. Pt is on Fentanyl drip with RASS score of -3. Dry weight is 69.9kg. ETT to Vent. AC/VC rate of 20, FIO2 25%, TV 450, PEEP 5, NGT on left nare for tube feeding. Permacath on right upper chest. Asymptomatic, no signs of infection observed. left upper arm midline, left hand 20g peripheral line. All IV lines patent and asymptomatic.+3 Pitting edema to bilateral upper extremities. Generalized edema observed. Skin intact. 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 ST to Afib on the monitor. Dr. Daugherty made aware. New order received to stop Fentanyl drip for CPAP trial. Noted and carried out. Patient is afebrile. HOB elevated to 340 degrees. Call light within reach. Bed in the lowest position. Will continue to monitor.
[2019-10-21] MEDS: MIDODRINE 5 MG TAB PO SCH ×3 (08:04→18:56)
[2019-10-21] MEDS: BLOOD GLUCOSE MONITORING 1 DEV DEV FS SCH ×4 (08:20→21:00)
[2019-10-21] MEDS: LACTOBACILLUS RHAMNOSUS GG 1 EACH CAP PO SCH (08:48)
[2019-10-21] MEDS: VENLAFAXINE XR 75 MG CAPER PO SCH (08:49)
[2019-10-21] MEDS: TOPIRAMATE 25 MG TAB NG SCH (08:51)
[2019-10-21] MEDS: VIT-B COMP/VIT-C/FOLIC ACID 1 TAB NG SCH (08:52)
[2019-10-21] MEDS: SPIRONOLACTONE 25 MG TAB NG SCH (08:53)
[2019-10-21] MEDS: SUCRALFATE 1 GM TAB NG SCH ×4 (08:53→22:05)
[2019-10-21] MEDS: AMIODARONE 200 MG TAB NG SCH ×2 (08:54→22:05)
[2019-10-21] MEDS: APIXABAN 2.5 MG TAB PO SCH ×2 (08:55→22:40)
[2019-10-21] MEDS: HYDROcodone/APAP 7.5/325 MG 1 TAB PO PRN ×2 (08:56→20:12)
[2019-10-21] MEDS: CLOPIDOGREL 75 MG TAB NG SCH (08:57)
[2019-10-21] MEDS: predniSONE 5 MG TAB PO SCH (08:57)
[2019-10-21] MEDS: BISACODYL 10 MG SUPP RC SCH (08:58)
[2019-10-21] MEDS: PANTOPRAZOLE 40 MG INJ VIAL IVP SCH (08:58)
[2019-10-21] MEDS ORDERED: CLINICAL MONITORING MC SCH (09:00)
[2019-10-21] MEDS: GABAPENTIN 100 MG CAP NG SCH ×4 (09:03→22:04)
--- NOTE | 2019-10-21 09:40 | NUR ---
PT PLACED ON CPAP PEEP5 PRESSURE SUPPORT [address] ORDERS PT SEEMS TO BE LUCRECIA OK AT THIS TIME WILL CONTINUE TO MONITOR PT ON VENT
[2019-10-21] MEDS ORDERED: KCL 20 MEQ/WATER INJ PREMIX 200 ML IV SCH (10:30)
[2019-10-21] MEDS: LORazepam 2 MG/ML VIAL IVP PRN (12:43)
--- NOTE | 2019-10-21 12:50 | NUR ---
PT TIRES TO PULL ESSENTIAL MEDICAL TUBES. REDIRECTION AND REPOSITION PROVIDED BUT CONTINUES. ATIVAN ADMINISTERED ORDERED. WILL CONTINUE TO MONITOR.
--- NOTE | 2019-10-21 13:30 | NUR ---
PT CONTINUES TO TOLERATE CPAP. RT GOT ABG ORDERED. AWAITING ON RESULT. REPOSITION ORDERED.
--- NOTE | 2019-10-21 13:47 | NUR ---
DR. CRUZ MADE AWARE OF THE ABG RESULTS.
--- NOTE | 2019-10-21 15:00 | NUR ---
PT HAD MODERATE AMOUNT OF FORMED STOOL. ASSISTED WITH HYGIENE AND BED BATH. SKIN INTACT. BILATERAL UPPER EXTREMITIES CONTINUE TO BE EDEMATOUS PITTING +3. REPOSITIONED FOR COMPORT. AFIB ON MONITOR. URINE OUTPUT LOW. WILL CONTINUE TO MONITOR.
--- NOTE | 2019-10-21 15:48 | NUR ---
Dr. Fay in to see. HD order received. [facility] dialysis paged.
[2019-10-21] MEDS ORDERED: FLUCONAZOLE 100 MG/NS PREMIX 50 ML IV SCH ×2 (17:00→19:30)
[2019-10-21] MEDS ORDERED: OSELTAMIVIR PHOSPHATE 30 MG CAP PO SCH ×2 (17:00→19:30)
[2019-10-21] MEDS: INSULIN LISPRO SLIDING SCALE 100 UNITS/ML VIAL SUBQ PRN ×2 (17:23→22:39)
--- NOTE | 2019-10-21 17:32 | NUR ---
HEPARIN 5000 UNITS X 2 WILL BE ADMINISTERED BY HD NURSE POST DIALYSIS TO LOCK THE PERMA CATH PORTS.
--- NOTE | 2019-10-21 18:05 | NUR ---
DR. KRAUSE IN TO SEE PT.
--- NOTE | 2019-10-21 18:38 | NUR ---
CALLED PHARMACY REGARDING DIFLUCAN AND TAMIFLU ORDERS THAT NEED TO BE ADMINISTERED AFTER DIALYSIS BUT THE ORDERS GOT DROPPED. PT STILL HAVING DIALYSIS AT THIS TIME AND EXPECTED COMPLETION OF TX IS AROUND 1930. PHARMACY MADE AWARE AND WILL UPDATE THE ORDERS.
--- NOTE | 2019-10-21 18:45 | NUR ---
DR. CRUZ IN TO SEE PT.
--- NOTE | 2019-10-21 19:30 | NUR ---
RECEIVED CHANGE OF SHIFT REPORT AT BEDSIDE FROM DAY SHIFT NURSE. PT IS ON DROPLET PRECAUTIONS FOR INFLUENZA B. PT IS AROUSABLE TO LIGHT TOUCH. EYES REACTIVE, SLUGGISH. UNABLE TO FOLLOW SIMPLE COMMANDS. PT HAS ETT TO VENT. ACVC FIO2 25%, RATE 20, VT 450, PEEP 5. LUNG SOUNDS ARE FINE CRACKLES THROUGHOUT ALL LOBES. PT HAS IRREGULAR PULSE RHYTHM AND IS TACHY AT 120-125. A-FIB ON MONITOR. PT HAS NG TUBE IN THE LEFT NARE W/ NEPHRO 1.8 FEEDING RUNNING AT 40 ML/HR W/ FWF 150 Q6HR. AIR AUSCULTATED FOR PLACEMENT. RESIDUALS AT 30 ML. PT HAS PERMACATH ON RIGHT UPPER CHEST, CURRENTLY BEING UTILIZED BY DIALYSIS NURSE FOR HEMODIALYSIS. PT HAS L MIDLINE CATHETER THAT IS ASYMPTOMATIC, PATENT AND INTACT. NS RUNNING 5 ML/HR TKO. PT HAS 20G PIV ON THE L HAND THAT CANNOT BE SALINE FLUSHED. SKIN IS INTACT BUT HAS BILATERAL UPPER EXTREMITY PITTING EDEMA +3. 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 HEEL PAD IS APPLIED. PT HAS MITTEN RESTRAINTS ALREADY APPLIED. SKIN UNDERNEATH IS INTACT, NO SIGNS OF INJURIES. HOB IS 30 DEGREES, BED IS LOCKED IN LOW POSITION. CALL LIGHT WITHIN REACH. WILL CONTINUE TO MONITOR.
--- NOTE | 2019-10-21 19:54 | NUR ---
RECEIVED REPORT FROM AM SHIFT. PT IS INTUBATED WITH ETT SIZE 7.0 AT 22CM @ TEETH LEVEL AND SECURED WITH ANCHOR-FAST. PT ON VENT SETTINGS ORDERED, VENT PLUGGED IN RED OUTLET, ALARMS SET AND AUDIBLE, BVM AT BEDSIDE, HOB > 30 DEGREES. PT IS IN NO APPARENT RESPIRATORY DISTRESS AT THIS TIME: RR 20, SPO2 100% ON FiO2 OF 25%: Fi02 TITRATED TO 21% WITH SPO2 97%, AND A COARSE BILATERAL BREATH SOUNDS. SX SMALL AMOUNT OF YELLOW THICK SECRETIONS FROM ETT. HHN TX GIVEN ORDERED AND PT TOLERATED TX WELL WITH NO ADVERSE REACTION. WILL CONTINUE TO MONITOR PT.
--- NOTE | 2019-10-21 20:05 | NUR ---
DIALYSIS IS COMPLETE. DIALYSIS NURSE REPORTED REMOVING 2L.
--- NOTE | 2019-10-21 21:00 | NUR ---
UNABLE TO FLUSH L HAND PIV. D/C'D L HAND PIV. CATHETER INTACT.
[2019-10-21] MEDS: SIMVASTATIN 20 MG TAB NG SCH (22:04)
[2019-10-21] MEDS: TOPIRAMATE 25 MG TAB PO SCH (22:08)
[2019-10-22] VITALS (20 sets, daily range): BP systolic 91–145; BP diastolic 42–85
--- NOTE | 2019-10-22 | NUR ---
PT AROUSABLE TO LIGHT TOUCH. PT UNABLE TO FOLOW SIMPLE COMMANDS. VAP ORAL CARE PROVIDED. RELEASED PT FROM MITTENS. SKIN INTACT. NO SIGNS OF INJURY. UAE EDEMATOUS +3. BED LOCKED IN LOW POSITION. HOB 30 DEGREES. WILL CONTINUE TO MONITOR.
--- NOTE | 2019-10-22 02:00 | NUR ---
CHECKED IN ON PT. NO SIGNS OF APPARENT DISTRESS. FLACC 0. PT AROUSABLE TO LIGHT TOUCH. PUPILS ARE SLUGGISH. PT IS EDEMATOUS BILATERAL UPPER EXTREMITIES AND LEFT LOWER EXTREMITY. +3 RIGHT ARM, +1 LEFT ARM. +2 LEFT LEG. WILL CONTINUE TO MONITOR.
--- NOTE | 2019-10-22 04:00 | NUR ---
EYES ARE CLOSED, APPEARING TO BE RESTING. SKIN UNDER MITTENS INTACT, NO SIGNS OF INJURY. RADIAL PULSE IS IRREGULAR, A-FIB ON MONITOR. EQUAL RISE AND FALL OF CHEST. FINE CRACKLES HEARD UPON AUSCULTATION THROUGHOUT. NO APPARENT SIGNS OF DISTRESS.
[2019-10-22] MEDS: PIPERACILLIN/TAZOBACTAM 2.25 GM in DEXTROSE 5% 50 ML IV SCH ×2 (05:04→12:50)
--- NOTE | 2019-10-22 05:39 | NUR ---
PROVIDED SKIN, ORAL, AND HUGHES HYGIENE. PT IS AROUSABLE TO TACTILE STIMULI. PUPILS ARE SLUGGISH, 4MM. PT IS UNABLE TO FOLLOW COMMANDS. PT IS ETT TO VENT. ACVC FIO2 21%, VT 450, RATE 20 PEEP 5. FINE CRACKLES ARE HEARD THROUGHOUT. THICK YELLOW SPUTUM SUCTIONED OUT. RIGHT ARM IS REDDENED AND EDEMATOUS, +3. LEFT ARM PITTING EDEMA +1, LEFT LEG PITTING EDEMA +2. PT HAD 1 BM: BROWN AND SMEAR. GASTRIC RESIDUALS <10ML. AIR AUSCULTATION IS DONE TO CONFIRM PLACEMENT. HOB 30 DEGREES, BED LOCKED IN LOW POSITION. SAFETY MEASURES IN PLACE. WILL CONTINUE TO MONITOR.
[2019-10-22] MEDS: MIDODRINE 5 MG TAB PO SCH ×2 (06:08→12:49)
[2019-10-22] MEDS: BLOOD GLUCOSE MONITORING 1 DEV DEV FS SCH ×3 (06:40→16:44)
[2019-10-22] MEDS: ALBUTEROL SULFATE/IPRATROPIU 3 ML SOL IH SCH ×2 (07:04→12:40)
--- NOTE | 2019-10-22 07:30 | NUR ---
RECEIVED REPORT FROM PM NURSE, PT PERRL, PT HAS NG TUBE LEFT NARE TUBE FEEDING NEPRO 40 ML/HR 150ML WATER FLUSH Q6, ETT TO VENT FIO2 21 VT 450 RR 20 PEEP 5, S1 S2 HEART SOUNDS HEARD LUNGS SOUNDS CLEAR BILATERAL, PT HAS MIDLINE LEFT UPPER ARM INFUSING 0.9 NS 5ML/HR, PT SKIN INTACT WITH EDEMA +2 RIGHT ARM, +1 LEFT HAND, F/C IN PLACE DRAINING CLOUDY YELLOW URINE, 1 BM BROWN SMEAR NO UNUSUAL SMELL, PT IN BED WITH HOB 30 DEGREES PER PROTOCOL, AND IN LOWEST POSITION. WILL CONTINUE TO MONITOR
--- NOTE | 2019-10-22 07:52 | NUR ---
RECIVED PT N VENT WITH SETTINGS HARTED BREATH SOUNDS PRESENT BILAT COARSE SXN PT WITH MIN AMT OFF WHITE SECS ETT SECURE AMBU BAG AT BED SIDE VENT PLUGGED INTO RED OUTLET WILL CONTINUE TO MONITOR PT ON VENT
[2019-10-22 08:16] LABS: BASOPHILS # (AUTO) 0.1 K/uL (0.00-0.22); BASOPHILS % (AUTO) 1.5 % (0.0-2.0); EOSINOPHILS # (AUTO) 0.1 K/uL (0-0.4); EOSINOPHILS % (AUTO) 0.7 % (0.0-4.0); HEMATOCRIT 22.2 % (36-48); HEMOGLOBIN 7.2 g/dL (12.0-16.0); LYMPHOCYTES # (AUTO) 0.7 K/uL (2.5-16.5); LYMPHOCYTES % (AUTO) 8.8 % (20.5-51.1); MEAN CORPUSCULAR HEMOGLOBIN 33 pg (27-31); MEAN CORPUSCULAR HGB CONC 33 g/dL (33-37); MEAN CORPUSCULAR VOLUME 99.8 fL (80-94); MONOCYTES # (AUTO) 0.1 K/uL (0.8-1.0); MONOCYTES % (AUTO) 1.2 % (1.7-9.3); NEUTROPHILS # (AUTO) 7.5 K/uL (1.8-7.7); NEUTROPHILS % (AUTO) 87.8 % (42.2-75.2); PLATELET COUNT (AUTO) 164 K/uL (140-450); RED BLOOD CELL COUNT(AUTO) 2.23 MIL/uL (4.20-5.40); RED CELL DISTRIBUTION WIDTH 18.7 % (11.6-13.7); WHITE BLOOD COUNT (AUTO) 8.5 K/uL (4.8-10.8)
[2019-10-22] MEDS: VENLAFAXINE XR 75 MG CAPER PO SCH (08:24)
[2019-10-22] MEDS: TOPIRAMATE 25 MG TAB NG SCH (08:24)
[2019-10-22] MEDS: predniSONE 5 MG TAB PO SCH (08:24)
[2019-10-22] MEDS: BISACODYL 10 MG SUPP RC SCH (08:24)
[2019-10-22] MEDS: PANTOPRAZOLE 40 MG INJ VIAL IVP SCH (08:25)
[2019-10-22] MEDS: SUCRALFATE 1 GM TAB NG SCH ×3 (08:25→16:32)
[2019-10-22] MEDS: CLOPIDOGREL 75 MG TAB NG SCH (08:25)
[2019-10-22] MEDS: LACTOBACILLUS RHAMNOSUS GG 1 EACH CAP PO SCH (08:25)
[2019-10-22] MEDS: VIT-B COMP/VIT-C/FOLIC ACID 1 TAB NG SCH (08:26)
[2019-10-22] MEDS: AMIODARONE 200 MG TAB NG SCH (08:26)
[2019-10-22] MEDS: SPIRONOLACTONE 25 MG TAB NG SCH (08:26)
[2019-10-22] MEDS: APIXABAN 2.5 MG TAB PO SCH (08:27)
[2019-10-22] MEDS: GABAPENTIN 100 MG CAP NG SCH ×3 (08:27→16:32)
[2019-10-22 08:32] LABS: ANION GAP 16.4 (8-16); CARBON DIOXIDE 21.6 mmol/L (21-32); CHLORIDE 99 mmol/L (98-107); CREATININE 3.4 mg/dL (0.6-1.3); GLUCOSE 139 mg/dL (74-106); SODIUM SERUM 133 mmol/L (136-145); UREA NITROGEN, BLOOD 64 mg/dL (7-18)
[2019-10-22] MEDS ORDERED: OSELTAMIVIR PHOSPHATE 30 MG CAP PO SCH (09:00)
[2019-10-22] MEDS ORDERED: CLINICAL MONITORING MC SCH (09:00)
[2019-10-22] MEDS ORDERED: FERROUS SULFATE 325 MG TABEC PO SCH (09:00)
[2019-10-22] MEDS ORDERED: VANCOMYCIN 750 MG in DEXTROSE 5% 250 ML IV SCH (09:00)
[2019-10-22 09:31] LABS: PHOSPHORUS 3.4 mg/dL (2.5-4.9)
[2019-10-22] MEDS: LORazepam 2 MG/ML VIAL IVP PRN (09:39)
[2019-10-22] MEDS ORDERED: LORazepam 2 MG/ML VIAL IVP PRN (11:20)
--- NOTE | 2019-10-22 11:25 | NUR ---
PT PLACED ON CPAP FOR WEANING TRIALSWILL CONTINUE TO MONITOR
[2019-10-22] MEDS: INSULIN LISPRO SLIDING SCALE 100 UNITS/ML VIAL SUBQ PRN ×2 (11:48→16:49)
--- NOTE | 2019-10-22 13:00 | NUR ---
ADMINISTERED MEDS TO PT PT, PT APPEARS TO BE TOLERATING TREATMENT
[2019-10-22] MEDS ORDERED: METOPROLOL 25 MG TAB PO SCH ×2 (15:00→21:00)
--- NOTE | 2019-10-22 17:00 | NUR ---
DR. CRUZ AT PT BESIDE SPOKE WITH RESPIRATORY THERAPIST, WANTS TO DISCUSS FURTHER PLAN OF CARE WITH FAMILY TOMORROW
[2019-10-22] MEDS ORDERED: LORazepam 2 MG/ML VIAL IM/IVP PRN (17:50)
[2019-10-22] MEDS ORDERED: fentaNYL 0.05 MG/ML VIAL IVP PRN (17:50)
[2019-10-22] MEDS ORDERED: fentaNYL 0.05 MG/ML VIAL IVP SCH (18:10)
[2019-10-22] MEDS ORDERED: LORazepam 2 MG/ML VIAL IM/IVP SCH (18:10)
[2019-10-22] MEDS ORDERED: LORazepam 2 MG/ML VIAL ONE (18:11)
[2019-10-22] MEDS ORDERED: fentaNYL 0.05 MG/ML VIAL ONE (18:13)
--- NOTE | 2019-10-22 18:28 | NUR ---
PT DAUGHTER COLE, GRAND DAUGHTER RAJWINDER AT [facility] WITH PT, DR. SHEA AND RESPIRATORY THERAPIST AT BEDSIDE WITH THEM PT TO BE TERMINALLY EXTUBATED, ATIVAN 1MG, FENTANYL 25 MCG MG GIVEN TO EASE ANY PT DISTRESS FROM EXTUBATION. RT EXTUBATED PT 02 SAT 88% RM AIR HR 114 BP 102/57 RR AT THIS TIME . Addendum: 10/22/19 at 1835 by Evaristo Underwood RN RR 18 NGT REMOVED TIP INTACT
--- NOTE | 2019-10-22 18:52 | NUR ---
TERMINAL EXTUBATION PERFORMED ORDERED. EXPLAINED THE PROCEDURE AND THE OUTCOME TO FAMILY AT BEDSIDE. DR. SHEA AT BEDSIDE. VENT DISCONTINUED ORDERED. WILL CONTINUE TO MONITOR PT.
[2019-10-22] MEDS ORDERED: SCOPOLAMINE 1.5 MG/72 HR PATCH TD SCH (18:55)
--- NOTE | 2019-10-22 19:00 | NUR ---
ENDORSED PT TO PROVIDER SERVICE REPRESENTATIVE NURSE TAN, DOUG GRANDDAUGHTER WITH PT
--- NOTE | 2019-10-22 19:50 | NUR ---
RECEIVED PT TRANSFER FROM ICU VIA GURNEY. RECEIVED BEDSIDE REPORT FROM ICU NURSE EJ AND RN FISHING GAME WARDEN. PT DNR ON PALLIATIVE CARE. V/S: T: 97.7 P: 109 R: 26 B/P: 109/42 SPOA: 88. PT ACCOMPANIED BY TWO GRANDDAUGHTERS.
--- NOTE | 2019-10-22 20:00 | NUR ---
PT VOMITED BROWNISH GASTRIC LIQUIDS. SUCTIONED MOUTH AND OBTAIN SAME CONSISTENCY LIQUID IN MODERATE AMOUNT. [id number] PT FOR COMFORT . WILL CONTINUE TO MONITOR. FAMILY STILL AT BEDSIDE.
--- NOTE | 2019-10-22 22:12 | NUR ---
PT UNEASY AND BREATHING FAST. DR. LOPEZ, RESIDENT ON DUTY MADE AWARE. HE SAID TO MEDICATE WITH FENTANYL IVP . GIVEN ORDERED. WILL CONTINUE TO MONITOR.
--- NOTE | 2019-10-22 23:09 | NUR ---
@2255 ON DIRECTOR OF CLAIMS HR ON THE 30 /MIN. CHECKED ON PT. UNRESPONSIVE. NOT BREATHING. UNABLE TO GET ANY VITAL SIGNS FOR SEVERAL TIMES. CALLED DR. LOPEZ ,RESIDENT . TELE MONITOR @2301 ASYSTOLE. HE ASSESSED PT. NO BREATHING. NO PULSE . PRONOUNCED AT THIS TIME. FAMILY AT BEDSIDE MADE AWARE.
--- NOTE | 2019-10-23 00:10 | NUR ---
CALLED [facility] AND [facility] SAID NOT CANDIDATE FOR [employer]GAN DONOR REFERENCE ID #[id number].
--- NOTE | 2019-10-23 00:15 | NUR ---
[facility] ,[facility] CALLED AND ASKED INFORMATION ABOUT THE PT. SHE SAID BODY RELEASED BY THEM.
--- NOTE | 2019-10-23 01:58 | NUR ---
TALKED TO SUMA FROM [facility]. FAMILY MADE AWARE THAT THE BODY WILL BE ROLL HAND BY THEM ANYTIME FROM NOW.
--- NOTE | 2019-10-23 02:05 | NUR ---
HUGHES CATHETER WAS DC'D @ 0100 . MIDLINE IV ACCESS ON LEFT UPPER ARM REMOVED. TIP INTACT. NO BLEEDING NOTED. DRESSING IN PLACED.
--- NOTE | 2019-10-23 02:10 | NUR ---
DIALYSIS CATHETER ON RT CHEST KEPT IN PLACED ON PT. WILL ENDORSE THIS TO THE MORTUARY.
--- NOTE | 2019-10-23 02:20 | NUR ---
PT HAS NO PERSONAL BELONGINGS. PICKED UP BY [facility] AT THIS TIME. FAMILY LEFT SAME TIME
== END 2019-10-22 23:09 | disposition expired | DRG 870 ==
LOC: MED 16:44 → MIC 18:59 → MTU 10-22 19:40
PROVIDERS: ADMIT General Practice; ATTEND General Practice
PROC: 5A1955Z Respiratory Ventilation, Greater than 96 Consecutive Hours (ICD-10-PCS; principal; 2019-10-17)
PROC: 5A09357 Assistance with Respiratory Ventilation, Less than 24 Consecutive Hours, Continuous Positive Airway Pressure (ICD-10-PCS; 2019-10-17)
PROC: 0BH17EZ Insertion of Endotracheal Airway into Trachea, Via Natural or Artificial Opening (ICD-10-PCS; 2019-10-17)
PROC: 5A1D70Z Performance of Urinary Filtration, Intermittent, Less than 6 Hours Per Day (ICD-10-PCS; 2019-10-20)
PROC: 5A1D70Z Performance of Urinary Filtration, Intermittent, Less than 6 Hours Per Day (ICD-10-PCS; 2019-10-21)
DX: A41.9 Sepsis, unspecified organism (principal); J69.0 Pneumonitis due to inhalation of food and vomit; N17.0 Acute kidney failure with tubular necrosis; I50.43 Acute on chronic combined systolic (congestive) and diastolic (congestive) heart failure; E43 Unspecified severe protein-calorie malnutrition; N18.6 End stage renal disease; I21.A1 Myocardial infarction type 2; J96.01 Acute respiratory failure with hypoxia; R65.21 Severe sepsis with septic shock; J10.08 Influenza due to other identified influenza virus with other specified pneumonia; I13.2 Hypertensive heart and chronic kidney disease with heart failure and with stage 5 chronic kidney disease, or end stage renal disease; M48.54XA Collapsed vertebra, not elsewhere classified, thoracic region, initial encounter for fracture; Q24.0 Dextrocardia; E11.22 Type 2 diabetes mellitus with diabetic chronic kidney disease; E11.51 Type 2 diabetes mellitus with diabetic peripheral angiopathy without gangrene; E78.5 Hyperlipidemia, unspecified; G40.909 Epilepsy, unspecified, not intractable, without status epilepticus; I25.10 Atherosclerotic heart disease of native coronary artery without angina pectoris; J45.909 Unspecified asthma, uncomplicated; M06.9 Rheumatoid arthritis, unspecified; I46.9 Cardiac arrest, cause unspecified; I48.91 Unspecified atrial fibrillation; D63.8 Anemia in other chronic diseases classified elsewhere; D53.1 Other megaloblastic anemias, not elsewhere classified; E11.40 Type 2 diabetes mellitus with diabetic neuropathy, unspecified; E87.6 Hypokalemia; F32.9 Major depressive disorder, single episode, unspecified; E02 Subclinical iodine-deficiency hypothyroidism; Z66 Do not resuscitate; D69.6 Thrombocytopenia, unspecified; Z68.29 Body mass index [BMI] 29.0-29.9, adult; Z99.2 Dependence on renal dialysis; Z88.2 Allergy status to sulfonamides; Z88.5 Allergy status to narcotic agent; Z89.511 Acquired absence of right leg below knee; Z90.49 Acquired absence of other specified parts of digestive tract; Z98.1 Arthrodesis status; Z89.422 Acquired absence of other left toe(s)
CPT/HCPCS: 36415; 36600; 70450; 71045; 71250; 71275; 80048; 80053; 80202; 82607; 82728; 82746; 82803; 82948; 83036; 83540; 83605; 83735; 83880; 84100; 84439; 84443; 84484; 85025; 85045; 85379; 85610; 85730; 86704; 86706; 86708; 86709; 86803; 86886; 86900; 86901; 87040; 87070; 87081; 87205; 87340; 87804; 90935; 93005; 93970; 94003; 94640; 94660; 96365; 96368; 96375; 99291; C9113; J0282; J0330; J1450; J1644; J1815; J2060; J2250; J2543; J3010; J3370; J3475; J3480; J3490; J7030; J7060; J7512; J7613; J8610; Q0092; Q9967